=== PATIENT | male | born 1990 | race Caucasian/White ===

== ENCOUNTER 2017-08-05 14:19 | Emergency (ER) | payer MEDICAID ==
[~2017-08-05] VITALS: Ht 185.4 cm; Wt 136.0 kg
[2017-08-05 14:45] VITALS: BP 187/109
[2017-08-05] MEDS ORDERED: HYDROCODONE/ACETAMINOPHEN 5/325MG TABLET PO ONE (14:45)
== END 2017-08-05 19:06 | disposition left against medical advice (07) ==
LOC: ER 15:26
DX: S82.291D Other fracture of shaft of right tibia, subsequent encounter for closed fracture with routine healing (principal); F15.10 Other stimulant abuse, uncomplicated; F32.9 Major depressive disorder, single episode, unspecified; F41.0 Panic disorder [episodic paroxysmal anxiety]; V49.9XXD Car occupant (driver) (passenger) injured in unspecified traffic accident, subsequent encounter
CPT/HCPCS: 73590; 99284

== ENCOUNTER 2019-08-07 21:55 | Emergency (ER) | payer MEDICAID ==
[~2019-08-07] VITALS: Ht 185.4 cm; Wt 121.0 kg
[2019-08-08] MEDS ORDERED: MORPHINE SULFATE 2 MG/ML CPJ (NOT FOR IM USE) IV ONE (00:15)
[2019-08-08 02:08] VITALS: BP 184/102
== END 2019-08-08 02:12 | disposition home or self-care (01) ==
LOC: ER 21:55
DX: S42.002A Fracture of unspecified part of left clavicle, initial encounter for closed fracture (principal); I10 Essential (primary) hypertension; F17.200 Nicotine dependence, unspecified, uncomplicated; W01.0XXA Fall on same level from slipping, tripping and stumbling without subsequent striking against object, initial encounter; Y93.9 Activity, unspecified; Y92.9 Unspecified place or not applicable; Z91.19 Patient's noncompliance with other medical treatment and regimen
CPT/HCPCS: 29130; 71045; 73000; 73030; 73060; 73070; 93005; 96374; 99283; J2270; Z7610; A4565

== ENCOUNTER 2022-05-25 00:30 | Emergency (ER) | payer MEDICAID, OTHER ==
[~2022-05-25] VITALS: Ht 177.8 cm; Wt 100.0 kg
[2022-05-25] MEDS ORDERED: AMPICILLIN SOD/SULBACTAM NA 3 G in SODIUM CHLORIDE 0.9% 100 ML IV STA (02:32)
[2022-05-25] MEDS ORDERED: MORPHINE SULFATE 4 MG/ML CPJ (NOT FOR IM USE) IV STA (02:32)
[2022-05-25] MEDS ORDERED: ONDANSETRON HCL 4MG/2ML INJ IV STA (02:32)
[2022-05-25] MEDS ORDERED: SODIUM CHLORIDE 0.9% 1,000 ML IV ONE (02:45)
[2022-05-25] MEDS ORDERED: DEXAMETHASONE 10 MG/ML VIAL IV ONE ×2 (02:45→11:00)
[2022-05-25 03:32] LABS: BASOPHILS % 0.3 % (0.0-2.0); EOSINOPHILS % 1.1 % (0.0-5.0); HEMOGLOBIN. 17.8 g/dL (14.0-18.0); LYMPHOCYTES % 8.1 % (20.0-50.0); MEAN CORPUSCULAR HEMOGLOBIN 31.3 pg (28.0-32.0); MEAN CORPUSCULAR VOLUME 91.3 fL (80.0-94.0); MEAN PLATELET VOLUME 8.6 fl (7.4-10.4); NEUTROPHILS % 82.5 % (40.0-76.0); PLATELET 262 x1000/uL (130-400); RED CELL DISTRIBUTION WIDTH 13.8 % (11.6-14.6)
[2022-05-25 04:15] LABS: CHLORIDE 102 mEq/L (98-107)
[2022-05-25] MEDS: AMPICILLIN SOD/SULBACTAM NA 3 G in SODIUM CHLORIDE 0.9% 100 ML IV SCH ×2 (11:43→20:00)
[2022-05-25 14:43] VITALS: BP 124/94
[2022-05-25] MEDS ORDERED: MORPHINE SULFATE 4 MG/ML CPJ (NOT FOR IM USE) IV ONE (18:45)
== END 2022-05-25 20:20 | disposition short-term general hospital (02) ==
LOC: ER 00:45 → CANBEDREQ 14:53 → ER 20:20
DX: J36 Peritonsillar abscess (principal); I49.9 Cardiac arrhythmia, unspecified; Z20.822 Contact with and (suspected) exposure to COVID-19
CPT/HCPCS: 10060; 36415; 70486; 80053; 85025; 87426; 93005; 96365; 96367; 96375; 96376; 99291; C9803; J0295; J1100; J2270; J2405; J7030; J7050; Z7610

== ENCOUNTER 2022-08-29 20:38 | Inpatient (IN) | payer MEDICAID, OTHER ==
[~2022-08-29] VITALS: Ht 185.4 cm; Wt 86.7 kg
[2022-08-29] MEDS ORDERED: KETOROLAC 30MG/ML VIAL IV STA (21:30)
[2022-08-29] MEDS ORDERED: DEXAMETHASONE 10 MG/ML VIAL IV ONE (21:30)
[2022-08-29] MEDS ORDERED: SODIUM CHLORIDE 0.9% 1,000 ML IV ONE (21:30)
[2022-08-29 22:53] LABS: BASOPHILS % 0.5 % (0.0-2.0); EOSINOPHILS % 0.5 % (0.0-5.0); HEMATOCRIT. 50.7 % (42.0-52.0); HEMOGLOBIN. 17.5 g/dL (14.0-18.0); LYMPHOCYTES % 8.4 % (20.0-50.0); MEAN CORPUSCULAR VOLUME 89.9 fL (80.0-94.0); MEAN PLATELET VOLUME 9.5 fl (7.4-10.4); MONOCYTES % 8.6 % (2.0-8.0); PLATELET 258 x1000/uL (130-400); RED BLOOD CELL COUNT 5.64 mill/uL (4.7-6.1); RED CELL DISTRIBUTION WIDTH 13.6 % (11.6-14.6)
[2022-08-29 22:58] LABS: CHLORIDE 104 mEq/L (98-107)
[2022-08-29 23:08] LABS: ETHANOL BLOOD < 10 mg/dL
[2022-08-30] MEDS ORDERED: AMPICILLIN SOD/SULBACTAM NA 3 G in SODIUM CHLORIDE 0.9% 100 ML IV SCH (00:45)
[2022-08-30 01:09] LABS: PROTHROMBIN TIME 11.1 sec (9.6-11.0)
[2022-08-30 01:28] LABS: *AMPHETAMINES SCREEN URINE PRESUMTIVE POSITIVE (NEGATIVE); *BARBITURATES SCREEN URINE NEGATIVE (NEGATIVE); *BENZODIAZEPINES SCREEN URINE NEGATIVE (NEGATIVE); *COCAINE SCREEN URINE NEGATIVE (NEGATIVE); CANNABINOID URINE SCREEN NEGATIVE (NEGATIVE); METHADONE URINE SCREEN NEGATIVE (NEGATIVE); OPIATES URINE SCREEN NEGATIVE (NEGATIVE); PHENCYCLIDINE URINE SCREEN NEGATIVE (NEGATIVE)
[2022-08-30] MEDS ORDERED: IOHEXOL-300 100 ML BOTTLE ONE (01:59)
[2022-08-30] MEDS ORDERED: VANCOMYCIN 1G PREMIX 200 ML IV SCH (02:15)
[2022-08-30] MEDS ORDERED: CEFTRIAXONE 1 G PREMIX 50 ML IV ONE (02:15)
[2022-08-30 02:40] LABS: CHLORIDE 105 mEq/L (98-107)
[2022-08-30] MEDS ORDERED: IPRATROPIUM/ALBUTEROL 0.5-3(2.5)MG/3ML NEB NEB PRN (17:15)
[2022-08-30] MEDS ORDERED: ONDANSETRON HCL 4MG/2ML INJ IV PRN (17:15)
[2022-08-30] MEDS ORDERED: ACETAMINOPHEN 325MG TABLET PO PRN (17:15)
[2022-08-30] MEDS ORDERED: KETOROLAC 30MG/ML VIAL IV PRN (17:15)
[2022-08-30] MEDS ORDERED: CEFTRIAXONE 1 G PREMIX 50 ML IV SCH (17:15)
[2022-08-30] MEDS ORDERED: LORAZEPAM 0.5MG TABLET PO PRN (17:15)
[2022-08-30] MEDS ORDERED: IPRATROPIUM BROMIDE (0.02%) 0.5MG/2.5ML NEB HHN PRN (17:30)
[2022-08-30] MEDS ORDERED: ALBUTEROL (0.083%) 2.5MG/3ML NEB HHN PRN (17:30)
[2022-08-30 17:42] VITALS: BP 133/82
[2022-08-30] MEDS ORDERED: INFLUENZA VACCINE 05/PF 0.5 ML SYRINGE IM ONE (18:00)
[2022-08-30] MEDS: SODIUM CHLORIDE 0.9% 1,000 ML IV SCH (18:22)
[2022-08-30] MEDS: DEXAMETHASONE 10 MG/ML VIAL IV SCH (18:22)
[2022-08-30] MEDS ORDERED: CEFTRIAXONE 1,000 MG in DEXTROSE 5% WATER 50 ML IV SCH (18:30)
[2022-08-30 20:00] VITALS: BP 127/79
[2022-08-30 20:14] LABS: HEPATITIS B SURFACE ANTIGEN NEGATIVE
[2022-08-31] VITALS: BP 125/75
[2022-08-31] MEDS: DEXAMETHASONE 10 MG/ML VIAL IV SCH (00:42)
[2022-08-31] MEDS: SODIUM CHLORIDE 0.9% 1,000 ML IV SCH (00:42)
[2022-08-31 04:00] VITALS: BP 112/72
[2022-08-31 05:39] LABS: BASOPHILS % 0.3 % (0.0-2.0); EOSINOPHILS % 0.1 % (0.0-5.0); HEMATOCRIT. 48.2 % (42.0-52.0); HEMOGLOBIN. 16.2 g/dL (14.0-18.0); LYMPHOCYTES % 7.3 % (20.0-50.0); MEAN CORPUSCULAR VOLUME 92.4 fL (80.0-94.0); MEAN PLATELET VOLUME 9.1 fl (7.4-10.4); MONOCYTES % 2.6 % (2.0-8.0); NEUTROPHILS % 89.7 % (40.0-76.0); PLATELET 247 x1000/uL (130-400); RED BLOOD CELL COUNT 5.22 mill/uL (4.7-6.1); RED CELL DISTRIBUTION WIDTH 13.3 % (11.6-14.6)
[2022-08-31 08:49] LABS: CHLORIDE 108 mEq/L (98-107)
[2022-09-01 04:07] LABS: HIV SCREEN 4G Non Reactive (Non Reactive)
== END 2022-08-31 08:00 | disposition left against medical advice (07) | DRG 720 ==
LOC: ER 20:38 → MICUSO 08-30 06:39 → EDBEDREQTM 08-30 06:42 → EDBEDREQ 08-30 06:42 → EDBEDREQTM 08-30 08:17 → EDBEDREQSVC 08-30 08:17 → 6EST 08-30 16:25
PROVIDERS: ADMIT Internal Medicine; ATTEND Internal Medicine
DX: A40.9 Streptococcal sepsis, unspecified (principal); E87.1 Hypo-osmolality and hyponatremia; J02.0 Streptococcal pharyngitis; E86.1 Hypovolemia; E87.5 Hyperkalemia; Z20.822 Contact with and (suspected) exposure to COVID-19; F17.210 Nicotine dependence, cigarettes, uncomplicated; F32.A Depression, unspecified; Z59.00 Homelessness unspecified; Z53.29 Procedure and treatment not carried out because of patient's decision for other reasons
CPT/HCPCS: 36415; 70491; 80048; 80053; 80305; 80320; 83605; 85025; 86803; 87340; 87389; 87426; 87430; 93005; 99291; C9803; J0295; J0696; J1100; J1885; J3370; J7030; J7050; J7060; Q9967; G0480

== ENCOUNTER 2022-09-28 14:09 | Emergency (ER) | payer OTHER ==
[~2022-09-28] VITALS: Ht 182.9 cm; Wt 131.0 kg
[2022-09-28 14:16] VITALS: BP 115/90
[2022-09-28] MEDS ORDERED: AMOX1TAB16 MT (17:54)
[2022-09-28] MEDS ORDERED: DOXY150T9 MT (17:54)
[2022-09-28] MEDS ORDERED: IBUP-2029 MT (17:55)
[2022-09-28] MEDS ORDERED: AMOXICILLIN/POTASSIUM CLAVULANATE 875/125MG TAB PO ONE (18:00)
[2022-09-28] MEDS ORDERED: DOXYCYCLINE HYCLATE 100MG CAPSULE PO ONE (18:00)
== END 2022-09-28 19:35 | disposition home or self-care (01) ==
LOC: ER 14:38
DX: L03.116 Cellulitis of left lower limb (principal); F17.200 Nicotine dependence, unspecified, uncomplicated
CPT/HCPCS: 99283; Z7610